=== PATIENT | male | born 1995 | race Two or more races ===

== ENCOUNTER 2016-05-19 00:46 | Emergency (ER) | payer OTHER ==
[~2016-05-19] VITALS: Ht 172.7 cm; Wt 79.4 kg
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
[2016-05-19] MEDS ORDERED: IBUPROFEN600 MG ORAL (01:27)
[2016-05-19 01:34] VITALS: BP 133/72
--- NOTE | 2016-05-19 11:42 | Diagnostic Imaging Report ---
Indication: pain Findings: 3 views of the left hand were obtained. Normal bony mineralization and alignment are demonstrated. No acute fractures, erosions, or periosteal reaction are seen. Soft tissues are unremarkable. Impression: Negative examination of the left hand.
== END 2016-05-19 01:35 ==
LOC: EDBD 00:46 → EMR 01:01
DX: S62.627A Displaced fracture of middle phalanx of left little finger, initial encounter for closed fracture (principal); X58.XXXA Exposure to other specified factors, initial encounter; Y93.9 Activity, unspecified; Y92.9 Unspecified place or not applicable
CPT/HCPCS: 99283